=== PATIENT | female | born 1960 ===

== ENCOUNTER 2022-07-25 08:35 | Emergency (ER) | payer MEDICARE ==
[2022-07-25 08:58] VITALS: BP 129/76
[2022-07-25 09:32] LABS: Eosinophils # (Auto) 0.1 K/mm3 (0.0-0.4); Eosinophils % (Auto) 1.3 % (0.0-4.3); Hemoglobin 14.2 gm/dl (10.1-14.3); Lymphocytes # (Auto) 1.2 K/mm3 (1.2-5.4); Mean Corpuscular HGB Conc 32 % (30-34); Mean Corpuscular Volume 95 fl (79-97); Monocytes # (Auto) 0.3 K/mm3 (0.0-0.8); Monocytes % (Auto) 6.2 % (0.0-7.3); Platelet Count 168 K/mm3 (140-440); Red Blood Count 4.65 M/mm3 (3.65-5.03); Red Cell Distribution Width 14.1 % (13.2-15.2)
[2022-07-25 09:50] LABS: BUN/Creatinine Ratio 18; Blood Urea Nitrogen 16 mg/dL (7-17); Calcium 9.5 mg/dL (8.4-10.2); Hemolysis Index 28
[2022-07-25] MEDS ORDERED: levETIRAcetam 500 MG TAB PO ONE (13:53)
[2022-07-25] MEDS ORDERED: HYDROcodone/ACETAMINOPHEN 5-325 MG TAB PO ONE (13:53)
[2022-07-25] MEDS ORDERED: BACITRACIN ZINC OINT 28.4 GM TP ONE (13:58)
--- NOTE | 2022-07-25 14:02 | Emergency Department Report ---
HPI - General Chief Complaint: Medical Clearance Time Seen by Provider: 07/25/22 13:42 - HPI HPI: Room 35 Patient is a 61-year-old female sent from [place] for medical clearance. Patient is currently at [facility] for psychosis/auditory hallucinations. Patient has a history of seizure disorder and states she has been noncompliant with her Keppra lately. Patient reports yesterday she had a seizure falling injuring her right forehead. Patient was sent from [facility] for head CT and labs for medical clearance prior to [place] admission ED Past Medical Hx - Past Medical History Hx Seizures: Yes Hx Psychiatric Treatment: Yes (Psychosis) - Surgical History Past Surgical History?: No - Social History Smoking Status: Former Smoker (None x3-months) Substance Use Type: None (Denies illicit drug use) ED Review of Systems ROS: Stated complaint: FELL/HEAD INJURY Other details as noted in HPI Constitutional: no symptoms reported Eyes: denies: eye pain ENT: denies: throat pain Respiratory: no symptoms reported Cardiovascular: denies: chest pain Endocrine: no symptoms reported Gastrointestinal: denies: abdominal pain Genitourinary: denies: dysuria Musculoskeletal: denies: back pain Neurological: headache Physical Exam - Physical Exam Vital Signs: Vital Signs 07/25/22 08:56 Temperature 97.1 F L Pulse Rate 58 L Respiratory 20 Rate Blood Pressure 129/76 [Right] O2 Sat by Pulse 99 Oximetry Physical Exam: GENERAL: The patient is well-developed well-nourished female lying on stretcher not appearing to be in acute distress. [] HEENT: Normocephalic. Subacute appearing abrasion to the right forehead. There is right superior palpebral swelling. Sclera is injected on the right. No hyphema present. When patient's swollen right eyelid is raised the patient has normal vision from the right eye. Extraocular motions are intact. Patient has moist mucous membranes. NECK: Supple. No meningitic signs are noted. There is no adenopathy noted. CHEST/LUNGS: Clear to auscultation. There is no respiratory distress noted. HEART/CARDIOVASCULAR: Regular. There is no tachycardia. There is no gallop rub or murmur. ABDOMEN: Abdomen is soft, nontender. Patient has normal bowel sounds. There is no abdominal distention. SKIN: There is a subacute appearing abrasion to the right forehead. There is no diaphoresis. NEURO: The patient is awake, alert, and oriented. The patient is cooperative. The patient has no focal neurologic deficits. The patient has normal speech. Cranial nerves II through XII grossly intact. GCS 15 MUSCULOSKELETAL: There is no evidence of acute injury. ED Course Vital Signs 07/25/22 08:56 Temperature 97.1 F L Pulse Rate 58 L Respiratory 20 Rate Blood Pressure 129/76 [Right] O2 Sat by Pulse 99 Oximetry ED Medical Decision Making - Lab Data Result diagrams: 07/25/22 09:14 07/25/22 09:14 Laboratory Tests 07/25/22 07/25/22 07/25/22 09:14 09:14 09:14 WBC 4.4 L RBC 4.65 Hgb 14.2 Hct 44.0 H MCV 95 MCH 31 MCHC 32 RDW 14.1 Plt Count 168 Lymph % (Auto) 27.0 [place] % (Auto) 6.2 Eos % (Auto) 1.3 Baso % (Auto) 1.0 Lymph # (Auto) 1.2 [place] # (Auto) 0.3 Eos # (Auto) 0.1 Baso # (Auto) 0.0 Seg Neutrophils % 64.5 Seg Neutrophils # 2.8 Sodium 145 Potassium 4.0 Chloride 109.5 H Carbon Dioxide 25 Anion Gap 15 BUN 16 Creatinine 0.9 Estimated GFR > 60 BUN/Creatinine Ratio 18 Glucose 98 Calcium 9.5 Salicylates < 0.3 L Acetaminophen 07/25/22 09:14 WBC RBC Hgb Hct MCV MCH MCHC RDW Plt Count Lymph % (Auto) [place] % (Auto) Eos % (Auto) Baso % (Auto) Lymph # (Auto) [place] # (Auto) Eos # (Auto) Baso # (Auto) Seg Neutrophils % Seg Neutrophils # Sodium Potassium Chloride Carbon Dioxide Anion Gap BUN Creatinine Estimated GFR BUN/Creatinine Ratio Glucose Calcium Salicylates Acetaminophen 5.0 L - Radiology Data Radiology results: report reviewed (CT head), image reviewed (CT head) [facility] [address] [place] [address] Cat Scan Report Signed Patient: PATRICIA MAHER MR#: [id number] 35 : 1960 Acct:[id number] Age/Sex: 61 / F ADM Date: 07/25/22 Loc: ED Attending Dr: Ordering Physician: MARSHA DUMONT MD Date of Service: 07/25/22 Procedure(s): CT head/brain wo con Accession Number(s): [id number] cc: MARSHA DUMONT MD CT head/brain wo con INDICATION / CLINICAL INFORMATION: 61 years Female; Head injury after seizure. TECHNIQUE: Routine CT head without contrast. All CT scans at this location are performed using CT dose reduction for ALARA by means of automated exposure control. COMPARISON: None. FINDINGS: BRAIN / INTRACRANIAL CONTENTS: There is mild cerebral white matter disease most consistent with microvascular angiopathy. Findings indicative of focal encephalomalacia and atrophy along the posterior lateral left temporal lobe which may be related to old infarct or previous trauma. The ventricular system appears appropriate in size and configuration. There are foci of calcification within the basal ganglia bilaterally. There is no clear CT evidence of acute intracranial hemorrhage or significant mass effect. There is mild edema involving right frontal scalp. ORBITS: No significant abnormality of visualized orbits. SINUSES / MASTOIDS: No significant abnormality in the visualized paranasal sinuses or mastoid air cells. CRANIOCERVICAL JUNCTION: No significant abnormality. ADDITIONAL FINDINGS: None. IMPRESSION: 1. There is microvascular angiopathy and encephalomalacia along the posterior lateral left temporal lobe as detailed above. 2. There is no CT evidence of acute intracranial hemorrhage. Signer Name: Ricci Abdul MD Signed: 07/25/2022 3:25 PM Workstation Name: [id number] Transcribed By: MR Dictated By: Ricci Abdul MD Electronically Authenticated By: Ricci Abdul MD Signed Date/Time: 07/25/22 152 DD/ 152 TD/TT: - Differential Diagnosis Closed head injury, seizure, forehead abrasion Critical care attestation.: If time is entered above; I have spent that time in minutes in the direct care of this critically ill patient, excluding procedure time. ED Disposition Clinical Impression: Closed head injury Disposition: [address] [place] [address] Is pt being admited?: No Does the pt Need Aspirin: No Condition: Stable Instructions: Head Injury, Adult, [id number] Additional Instructions: Return to the emergency department should you develop worsening symptoms, inability to tolerate food or liquids, high fever or any other concerns Referrals: [facility] [Provider Group] - 3-5 Days Time of Disposition: 15:44 (DC to [facility])
--- NOTE | 2022-07-25 15:29 | Cat Scan Report ---
CT head/brain wo con INDICATION / CLINICAL INFORMATION: 61 years Female; Head injury after seizure. TECHNIQUE: Routine CT head without contrast. All CT scans at this location are performed using CT dos e reduction for ALARA by means of automated exposure control. COMPARISON: None. FINDINGS: BRAIN / INTRACRANIAL CONTENTS: There is mild cerebral white matter disease most consistent with micro vascular angiopathy. Findings indicative of focal encephalomalacia and atrophy along the posterior la teral left temporal lobe which may be related to old infarct or previous trauma. The ventricular syst em appears appropriate in size and configuration. There are foci of calcification within the basal ganglia bilaterally. There is no clear CT evidence o f acute intracranial hemorrhage or significant mass effect. There is mild edema involving right front al scalp. ORBITS: No significant abnormality of visualized orbits. SINUSES / MASTOIDS: No significant abnormality in the visualized paranasal sinuses or mastoid air javier ls. CRANIOCERVICAL JUNCTION: No significant abnormality. ADDITIONAL FINDINGS: None. IMPRESSION: 1. There is microvascular angiopathy and encephalomalacia along the posterior lateral left temporal l obe as detailed above. 2. There is no CT evidence of acute intracranial hemorrhage. Signer Name: Ricci Abdul MD Signed: 07/25/2022 3:25 PM Workstation Name: [id number]
== END 2022-07-25 16:00 ==
LOC: ED 08:35
DX: S09.90XA Unspecified injury of head, initial encounter (principal); R44.0 Auditory hallucinations; G40.909 Epilepsy, unspecified, not intractable, without status epilepticus; Z87.891 Personal history of nicotine dependence; X58.XXXA Exposure to other specified factors, initial encounter; Y93.89 Activity, other specified; Y92.89 Other specified places as the place of occurrence of the external cause; Y99.8 Other external cause status
CPT/HCPCS: 36415; 70450; 80048; 80320; 85025; 99285; G0480